=== PATIENT | female | born 1995 | race African-American/Black ===

== ENCOUNTER 2020-09-15 01:09 | Emergency (ER) | payer OTHER, SELFPAY ==
[2020-09-15] MEDS ORDERED: Acetaminophen 500 MG TAB ONE (01:26)
[2020-09-15 11:37] LABS: SARS-CoV-2 PCR by NAA Not Detected (NotDetected)
== END 2020-09-15 03:34 | disposition home or self-care (01) ==
LOC: ERS 01:09
DX: R07.9 Chest pain, unspecified (principal); R06.00 Dyspnea, unspecified; Z20.822 Contact with and (suspected) exposure to COVID-19; F17.290 Nicotine dependence, other tobacco product, uncomplicated
CPT/HCPCS: 71045; 87635; 93005; U0003; U0005